=== PATIENT | male | born 1990 | race Caucasian/White ===

== ENCOUNTER 2023-07-09 07:07 | Emergency (ER) | payer OTHER ==
[2023-07-09] MEDS ORDERED: IBUP-2218 PO (09:20)
[2023-07-09] MEDS ORDERED: SULF-59 PO (09:20)
[2023-07-09] MEDS ORDERED: CEPH-588 PO (09:20)
[2023-07-09 09:41] VITALS: BP 125/82; PULSE 66; RESP 16; TEMP 98; O2SAT 99
== END 2023-07-09 09:41 | disposition home or self-care (01) ==
LOC: MED 07:07
DX: L03.116 Cellulitis of left lower limb (principal); Z79.899 Other long term (current) drug therapy; Z88.0 Allergy status to penicillin
CPT/HCPCS: 93971; 99284